=== PATIENT | female | born 1990 | race Two or more races ===

== ENCOUNTER 2017-01-24 22:30 | Emergency (ER) | payer SELFPAY ==
[~2017-01-24] VITALS: Ht 167.6 cm; Wt 65.3 kg
[2017-01-24] MEDS: IBUPROFEN 600 MG TABLET PO ONE (23:15)
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
[2017-01-24 23:23] VITALS: BP 131/82
[2017-01-24] MEDS ORDERED: IBUPROFEN 600 MG TABLET ONE (23:29)
== END 2017-01-24 23:25 | disposition home or self-care (01) ==
LOC: ER 22:32
DX: Z69.11 Encounter for mental health services for victim of spousal or partner abuse (principal); S09.90XA Unspecified injury of head, initial encounter; M79.652 Pain in left thigh; Y08.89XA Assault by other specified means, initial encounter; Y92.89 Other specified places as the place of occurrence of the external cause; Y93.89 Activity, other specified; Y99.8 Other external cause status
CPT/HCPCS: 99283; A4663